=== PATIENT | male | born 1950 | race Caucasian/White ===

== ENCOUNTER 2017-06-30 16:00 | Inpatient (IN) | payer MEDICARE ==
[2017-07-16] MEDS ORDERED: CELECOXIB 100 MG CAPSULE PO ONE (06:00)
[2017-07-16] MEDS ORDERED: MECLIZINE 25 MG TABLET PO ONE (06:00)
[2017-07-16] MEDS ORDERED: ACETAMINOPHEN 1,000 MG/100 ML BTL IV ONE (06:00)
[2017-07-16] MEDS ORDERED: CEFAZOLIN 2 Gram 2 GM/50 ML BAG IVPB ONE (06:00)
[2017-07-16] MEDS ORDERED: FAMOTIDINE 20MG TABLET PO ONE (06:00)
[2017-07-16] MEDS ORDERED: METOCLOPRAMIDE 10 MG TABLET PO ONE (06:00)
[2017-07-16] MEDS ORDERED: HYDROMORPHONE HCL 1 MG/ML CPJ IVP PRN (13:00)
[2017-07-16] MEDS ORDERED: TRAMADOL HCL 50 MG TABLET PO PRN ×2 (13:00)
[2017-07-16] MEDS ORDERED: AL HYDROX/MAG HYDROX 30ML UD PO PRN (13:00)
[2017-07-16] MEDS ORDERED: SENNOSIDES/DOCUSATE SODIUM UD CAPSULE PO PRN (13:00)
[2017-07-16] MEDS ORDERED: RINGERS SOLUTION,LACTATED 1,000 ML IV SCH (13:00)
[2017-07-16] MEDS ORDERED: ZOLPIDEM TARTRATE 5 MG TABLET PO PRN (13:00)
[2017-07-16] MEDS ORDERED: MAGNESIUM HYDROXIDE 30 ML UDC PO PRN (13:00)
[2017-07-16] MEDS ORDERED: ONDANSETRON HCL IV 4 MG/2 ML VIAL IVP PRN (13:00)
[2017-07-16] MEDS ORDERED: METOCLOPRAMIDE HCL 10 MG/2 ML VIAL IVP PRN (13:00)
[2017-07-16] MEDS ORDERED: DIPHENHYDRAMINE HCL 25 MG CAPSULE PO PRN (13:00)
[2017-07-16] MEDS ORDERED: OXYCODONE HCL 5 MG TABLET PO PRN (13:00)
[2017-07-16] MEDS ORDERED: TRANEXAMIC ACID 1,000 MG in 0.9 % SODIUM CHLORIDE 100ML 100 ML IVPB ONE (13:30)
--- NOTE | 2017-07-16 15:11 | Operative Note ---
DATE OF SURGERY: 07/16/2017 Surgeon: Ayo Odell DO PREOPERATIVE DIAGNOSIS: Primary osteoarthritis of the right knee. POSTOPERATIVE DIAGNOSIS: Primary osteoarthritis of the right knee. OPERATION: Right total knee arthroplasty. DESCRIPTION OF PROCEDURE: This 67-year-old male was taken to the operating room, placed in the supine position on the operating room table where spinal anesthesia was induced. The right lower extremity was then elevated. Then the right lower extremity was prepped with Hibiclens and draped in the usual sterile fashion. It was exsanguinated and the tourniquet inflated to 300 mmHg. All scrub personnel wore personal isolation suits. An anterior longitudinal midline incision was made followed by a medial parapatellar arthrotomy incision. An intracondylar drill hole was made for the intramedullary alignment nas and a 6-degree valgus 9 mm cut was made in the distal femur. The wafer of bone was removed. Sizing jig was affixed and size 65 was seen to be the appropriate size in the medial and lateral dimension. Subsequently, the 4-in-1 cutting block was pinned in 3 degrees of external rotation. The appropriate cuts were made. We then directed our attention to the proximal tibia, and an extramedullary alignment guide was used to cut the proximal tibia referencing a 10 mm cut off the lateral tibial plateau. We found that this would not get below the subchondral bone, so an additional 2 mm was taken. The wafer of bone was removed. Subsequently, remnants of the menisci and osteophytes were removed from the posterior aspect of the joint. The tibia was sized to a size 75. The stem punch was used. The wound was copiously irrigated to remove all debris from the joint. Trials were inserted and a 10 mm bearing was seen to be the appropriate thickness of the bearing and the knee was stable through full extension and full flexion of the knee. The patella was then cut and restored to anatomic height with a 37 x 8.6 mm patella, and the patellofemoral joint was also seen to be stable. All trial components were then removed and the wound copiously irrigated with pulse lavage, lactated Ringer's solution. The posterior, medial, and lateral corners of the joint were injected with Exparel and the remainder of the Exparel was injected into the periosteum and joint capsule of the proximal tibia and the distal femur after all final components were inserted. After irrigation, the bony surfaces were dried and all components were cemented and excess cement removed after the insertion of each component. Initially the tibial component was cemented into place followed by insertion of the tibial bearing, the femoral component, and finally the patella. Once the cement had hardened, the knee was again taken through range of motion and found to be stable. A drain was placed through a separate stab incision. The arthrotomy incision was closed with a #2 Vicryl. The subcutaneous tissue was closed with 0 Vicryl and the skin was stapled. Sterile dressings with Polar Care were applied. The patient was taken to the recovery room in satisfactory condition. GROSS PATHOLOGY: This patient demonstrated advanced medial compartment osteoarthritis and patellofemoral arthritis with full-thickness articular cartilage loss being noted. Grade 2 changes noted in the lateral compartment. Final components inserted were a [employer] Vanguard size 65 cruciate retaining femoral component, a 75 tibial baseplate, a 10 mm anterior stabilized D1 bearing, and a 37 x 8.6 mm patella was used. CC: Kale Mohan MD MTDD
[2017-07-16] MEDS: OXYCODONE HCL 5 MG TABLET PO PRN ×2 (15:13→23:17)
[2017-07-16] MEDS: ACETAMINOPHEN 1,000 MG/100 ML BTL IV SCH ×2 (15:13→21:55)
[2017-07-16] MEDS ORDERED: BUPIVACAINE LIPOSOME 266MG/20ML VIAL IV ONE (15:43)
[2017-07-16] MEDS ORDERED: BUPIVACAINE 0.25% W/EPI MPF 30ML VIAL IVP ONE (15:43)
[2017-07-16] MEDS ORDERED: TRANEXAMIC ACID 1,000 MG/10 ML ML IV ONE (15:43)
[2017-07-16] MEDS ORDERED: MIDAZOLAM HCL 2MG/2ML VIAL IV ONE (15:50)
[2017-07-16] MEDS ORDERED: FENTANYL PF 100MCG/2ML VIAL IV ONE (15:50)
[2017-07-16] MEDS ORDERED: HYDROMORPHONE HCL 2 MG/ML VIAL IV ONE (15:50)
[2017-07-16] MEDS ORDERED: PROPOFOL 10 MG/ML VIAL IV ONE (15:50)
[2017-07-16] MEDS ORDERED: LIDOCAINE 2% MDV (20MG/ML) 20ML VIAL IV ONE (15:50)
[2017-07-16] MEDS ORDERED: DIPHENHYDRAMINE HCL IV 50 MG/ML VIAL IVP ONE (15:50)
--- NOTE | 2017-07-16 16:48 | Rehab Evaluation ---
Patient Information - Patient Information Diagnosis: Right knee OA Ordered Treatment: PT Evaluate and Treat Status: Initial Evaluation Surgery: Yes (Right TKA) Date of Surgery: 07/16/17 Past Medical/Surgical Hx: PAST MEDICAL/SURGICAL HISTORY Past Surgical History lumbar fusion 2002, right knee scope, c-scope PMH - Respiratory Hx Respiratory Disorders No Hx Sleep Apnea Yes: maybe PMH - Cardiovascular Hx Cardiovascular Disorders Yes Hx Hypertension Yes: gd control on meds Exercise Tolerance Fair PMH - Neuro Hx Neurological Disorders No PMH - GI Hx Gastrointestinal Disorders No PMH - Hx Genitourinary Disorders No PMH - Endocrine Hx Endocrine Disorders No PMH - Musculoskeletal Hx Musculoskeletal Disorders Yes Hx Arthritis Yes PMH - Psych Hx Psychiatric Problems No PMH - Hematology/Oncology Hx Hematology/Oncology No Disorders Precautions: [place], Fall - Time With Patient Total Time Spent With Patient (Min): 30 Treatment Procedures: Detail (Patient seen bedside and sitting up in bed but drowsy. Able to wake up easily. Worked through exercises for right knee gently then moved from supine to sit to stand with only very light assist with right LE. While sitting edge of bed, became nauseous, but it passed and wanted to try to get to bathroom to use commode so sit to stand with verbal cues, standard walker and CGA, assist with IV pole. Ambulated 10 feet into bathroom, sat on commode with cues, then vomited in emmesis bag time 2. Sit to stand again with CGA and standard walker, ambulated back to bed. Re-attached cryocuff, compressive stockings, CPM machine then moved tray table and call light close.) Subjective Information - Subjective Information Per Patient (Lives in single story house, two steps into house. Has all needs for home care and will care for him.) Objective Data - Pain Pain Present: Yes Pain Scale Used: Numeric (1 - 10) (3-4/10) - Mental Status Patient Orientation: Oriented x3 - Visual Perception Appears within normal limits for therapeutic activities - ROM Within normal limits (except right knee: 0-60 degrees of motion.) - Strength/Tone Within normal limits (Except quads 3-/5, hamstrings right 4/5, right hip 3/5 at least.) - Coordination Appears within normal limits for therapeutic activities - Bed Mobility Independent - Transfers Independent - Balance Balance Sitting: Good Balance Standing: Good - Sensation Intact - Gait Detail (Able to walk WBAT right LE with standard walker. Only walked 10 feet times 2 this pm.) - Special Tests No Therapy Assessment - Therapy Assessment Detail (Patient doing very well, just some issues with nausea and vomiting after liquid lunch.) Patient Education - Patient Education Teaching Topic: Equipment Use, Exercise/Activity Response: Return Demonstration Teaching Method: Discussion, Demonstration Teaching Recipient: Patient, Family Barriers To Learning: None Problem List - Problem List Physical Therapy Problem List: Detail (Some decreased mobility and endurance yet. Gait is impaired somewhat but should improve quickly.) Goals - Goals Physical Therapy Goals: Patient will be independent with all mobility, gait with walker, stairs as needed to go home safely with . Exercises as able to tolerate for now. Prognosis - Prognosis Good (Should do well; anticipate discharge home tomorrow.) Plan - Plan Physical Therapy Plan: Continue PT BID tomorrow for exercises, gait training, stairs, mobility. If needs to stay overnight will assess if needs more PT.
[2017-07-16] MEDS: CEFAZOLIN 2 Gram 2 GM/50 ML BAG IVPB SCH (18:16)
[2017-07-16] MEDS: FONDAPARINUX 2.5 MG/0.5 ML SYR SQ SCH (20:00)
[2017-07-17] MEDS: CEFAZOLIN 2 Gram 2 GM/50 ML BAG IVPB SCH ×2 (02:27→10:14)
[2017-07-17] MEDS: ACETAMINOPHEN 1,000 MG/100 ML BTL IV SCH (03:22)
[2017-07-17] MEDS: OXYCODONE HCL 5 MG TABLET PO PRN (08:26)
[2017-07-17] MEDS ORDERED: PATIENT OWN MED: AMLODIPINE 10 MG PO SCH (10:00)
[2017-07-17] MEDS ORDERED: TRIAMTERENE PO SCH (10:00)
[2017-07-17] MEDS ORDERED: HCTZ PO SCH (10:00)
--- NOTE | 2017-07-17 10:23 | Occupational Therapy Tx Note ---
Occupational Therapy Tx Note - Treatment Note Tolerated: Good Total Time Spent With Patient: 50 Occupational Therapy Treatment Note: Detail (Pt up in bedside chair upon arrival. His significant other purchased game preserve manager for LB drsg & wanting to trial this. Amb w/ 2WW bedside chair> shower chair SBA. Ind doff of shirt, underwear, pants and socks. Completed showering in sitting. Ind for BUE's, face, & BLE's. Dep for back washing and buttocks. Ind w/ towel off except for back. Completed drsg EOB. Instructed on game preserve manager use and LB drsg technique w/ game preserve manager. Pt attempted but became quickly frustrated w/ game preserve manager and chose to complete drsg w/ o it. Donned pants Ind w/ SBA sit<>stand t/f to pull pants over hips. Ind w/ sock don. Pt at prior functional level w/ drsg and showering. Will focus on UE strengthening and revisit game preserve manager use should he struggle w/ LB drsg again.)
--- NOTE | 2017-07-17 10:33 | Rehab Evaluation ---
Patient Information - Patient Information Diagnosis: Right knee OA Ordered Treatment: OT Evaluate and Treat Status: Initial Evaluation Surgery: Yes (Right TKA) Date of Surgery: 07/16/17 Past Medical/Surgical Hx: PAST MEDICAL/SURGICAL HISTORY Past Surgical History lumbar fusion 2002, right knee scope, c-scope PMH - Respiratory Hx Respiratory Disorders No Hx Sleep Apnea Yes: maybe PMH - Cardiovascular Hx Cardiovascular Disorders Yes Hx Hypertension Yes: gd control on meds Exercise Tolerance Fair PMH - Neuro Hx Neurological Disorders No PMH - GI Hx Gastrointestinal Disorders No PMH - Hx Genitourinary Disorders No PMH - Endocrine Hx Endocrine Disorders No PMH - Musculoskeletal Hx Musculoskeletal Disorders Yes Hx Arthritis Yes PMH - Psych Hx Psychiatric Problems No PMH - Hematology/Oncology Hx Hematology/Oncology No Disorders Social History: Detail (Pt lives in 1-story house with spouse. He has a tub/ shower combo w/ glass door enclosure. Pt has available tub bench and hand held shower head. Spouse will be assisting w/ all meal prep and any ADL needs pt has while at home.) Precautions: [place], Fall - Time With Patient Total Time Spent With Patient (Min): 15 Treatment Procedures: Detail (Eval OT low) Objective Data - Mental Status Patient Orientation: Oriented x3 - Visual Perception Appears within normal limits for therapeutic activities - ROM Within normal limits (BUE's) - Strength/Tone Within normal limits (BUE's) - Coordination Appears within normal limits for therapeutic activities - Bed Mobility Independent - Balance Balance Sitting: Good - ADL's/IADL's Detail (Pt just getting back from room post stairs and ambulation w/ PT. Pt wishing to not trial drsg at this time secondary to wanting to rest. Pt's spouse present during evaluation and during ADL drsg discussion and both pt and spouse verbalized understanding. Pt was instructed on LE drsg techniques with placing RLE into pants first then L and reversing this when doffing pants. Spouse will assist w/ sock/shoe don if needed. Discussed wrapping techniques to avoid saturation of water/soap on incision until wound heals. Spouse and pt verbalized understanding. Spouse or pt will call with any ADL questions should any concerns arise once at home.) Therapy Assessment - Therapy Assessment Detail (Pt has supportive spouse willing to assist as needed. Both spouse and patient verbalize understanding of LB drsg techniques. He has all equipment needs met. Pt will call with any questions should concerns come up once home. Do not anticipate pt needing further inpatient OT at this time.) Patient Education - Patient Education Teaching Topic: Equipment Use, Other (ADL drsg techniques) Response: Verbalize Understanding Teaching Method: Discussion Teaching Recipient: Patient, Family Barriers To Learning: None Problem List - Problem List Physical Therapy Problem List: Detail (Some decreased mobility and endurance yet. Gait is impaired somewhat but should improve quickly.) Goals - Goals Physical Therapy Goals: Patient will be independent with all mobility, gait with walker, stairs as needed to go home safely with . Exercises as able to tolerate for now. Prognosis - Prognosis Good Plan - Plan Physical Therapy Plan: Continue PT BID tomorrow for exercises, gait training, stairs, mobility. If needs to stay overnight will assess if needs more PT. Occupational Therapy Plan: No further OT inpatient therapy needed at this time.
--- NOTE | 2017-07-17 11:30 | Physical Therapy Tx Note ---
Physical Therapy Tx Note - Treatment Note Tolerated: Good (Patient doing quite well this am but did not sleep well and had a lot of pain overnight. Had dropped call light device and so pain got pretty intense before received pain med. Able to walk this am with standard walker and even able to descend and ascend steps with verbal cues and min assist for support.) Total Time Spent With Patient: 30 Physical Therapy Tx Note: Detail (Patient up coming back from bathroom when entered room. Able to convince to walk out in block with CGA and standard walker about 60 feet to stairwell. Sat and rested in wheelchair for a couple of minutes then ambulated down three steps with CGA, folded walker and rail, pivoted around then up three steps with walker, rail and CGA. Able to ambulate back to room WBAT with standard walker, CGA about 60 more feet. Performed exercises seated rather than supine as OT waiting to see patient. Able to bend knee almost to 90 degrees.) Physical Therapy Problem List: Detail (Some decreased mobility and endurance yet. Gait is impaired somewhat but should improve quickly.) Physical Therapy Goals: Patient will be independent with all mobility, gait with walker, stairs as needed to go home safely with . Exercises as able to tolerate for now. Prognosis: Good (Excellent progress and able to ambulate safely, performed stairs well. Good ROM with knee.) Physical Therapy Plan: Continue PT BID tomorrow for exercises, gait training, stairs, mobility. If needs to stay overnight will assess if needs more PT.
[2017-07-17] MEDS ORDERED: HYDROCODONE/APAP 7.5/325MG TABLET PO PRN ×2 (13:00)
[2017-07-17] MEDS ORDERED: ACETAMINOPHEN 325 MG TAB PO PRN (13:00)
[2017-07-17] MEDS ORDERED: OXYCODONE/APAP 7.5MG/325MG TABLET PO PRN (13:00)
[2017-07-17] MEDS: OXYCODONE/APAP 7.5MG/325MG TABLET PO PRN ×2 (13:50→16:41)
[2017-07-17] MEDS: FONDAPARINUX 2.5 MG/0.5 ML SYR SQ SCH (16:42)
--- NOTE | 2017-07-20 13:10 | Discharge Summary ---
DATE OF ADMISSION: 07/16/2017 DATE OF DISCHARGE: 07/17/2017 ADMITTING DIAGNOSIS: Osteoarthritis of the right knee. DISCHARGE DIAGNOSIS: Osteoarthritis of the right knee. OPERATIVE PROCEDURE: Elective right total knee arthroplasty. DESCRIPTION: This 67-year-old male was admitted to the hospital for elective total knee arthroplasty and tolerated the operative procedure well. He had no evidence of complication following the surgery and cleared physical therapy and was ready for discharge. He will have outpatient physical therapy. He was instructed to wear his ANA hose during the day and remove them at night. He will take aspirin 325 mg b.i.d. for 2 weeks and he will take Percocet 7.5/325 one or two every 6 hours as necessary for pain, and he was given 80. Routine wound care instructions were given. He will follow up in the office in 2 weeks. Should he have any problems prior to being seen, he was instructed to call my office. ASHLEE
== END 2017-07-17 17:05 | disposition home or self-care (01) | DRG 470 ==
LOC: MEDSURG 07-16 09:04
PROVIDERS: ADMIT Orthopaedic Surgery; ATTEND Orthopaedic Surgery
PROC: 0SRC069 Replacement of Right Knee Joint with Oxidized Zirconium on Polyethylene Synthetic Substitute, Cemented, Open Approach (ICD-10-PCS; principal; 2017-07-16 11:00)
DX: M17.11 Unilateral primary osteoarthritis, right knee (principal); I10 Essential (primary) hypertension
CPT/HCPCS: 97110; 97116; 97165; J1170; J1200; J2405; J2765; J7120